=== PATIENT | female | born 1950 | race Hispanic/Latino ===

== ENCOUNTER → 2020-10-18 | Outpatient (CLI) | payer OTHER ==
[~2020-10-18] MED LIST: ASPI-556 PO; CHOL500045 PO; DIME50TA24 PO; FERR-82 PO; PANT40TA PO; PROM6.2523 TP; RANI-379 PO
== END | disposition home or self-care (01) ==
LOC: RAH 12:36
PROVIDERS: ATTEND Family Medicine
DX: Z13.6 Encounter for screening for cardiovascular disorders (principal)
CPT/HCPCS: 75571